=== PATIENT | female | born 1955 | race Two or more races ===

== ENCOUNTER 2018-06-08 07:52 | Emergency (ER) | payer OTHER ==
[2018-06-08] MEDS: OXYMETAZOLINE 0.05% 15 ML NAS SPRAY NASAL (08:28)
== END 2018-06-08 08:54 | disposition home or self-care (01) ==
LOC: FTE 07:52
DX: R04.0 Epistaxis (principal); I10 Essential (primary) hypertension; E11.9 Type 2 diabetes mellitus without complications; Z79.84 Long term (current) use of oral hypoglycemic drugs
CPT/HCPCS: 99283; Z7502

== ENCOUNTER 2018-06-12 16:07 | Emergency (ER) | payer OTHER ==
[2018-06-12] MEDS: OXYMETAZOLINE 0.05% 15 ML NAS SPRAY NASAL (16:28)
[2018-06-12] MEDS: ONDANSETRON (ODT) 4 MG TAB ODT (16:29)
[2018-06-12 16:40] LABS: ADD MAN DIFF? NO
[2018-06-12 16:47] LABS: BASOPHILS % 0.3 % (0.0-2.0); EOSINOPHILS # 0.1 10^3/ul (0.0-0.5); EOSINOPHILS % 0.9 % (0.0-7.0); HEMATOCRIT 35.4 % (37.0-47.0); HEMOGLOBIN 11.7 g/dl (12.0-16.0); LYMPHOCYTES # 2.4 10^3/ul (0.8-2.9); LYMPHOCYTES % 40.1 % (15.0-51.0); MEAN CORPUSCULAR HEMOGLOBIN 30.1 pg (29.0-33.0); MEAN CORPUSCULAR HGB CONC 33.1 g/dl (32.0-37.0); MEAN PLATELET VOLUME 9.9 fl (7.4-10.4); MONOCYTE # 0.4 10^3/ul (0.3-0.9); MONOCYTES % 7.1 % (0.0-11.0); NEUTROPHILS % 51.4 % (39.0-77.0); PLATELET COUNT 289 10^3/UL (140-415); RED BLOOD COUNT 3.89 10^6/ul (4.20-5.40); RED CELL DISTRIBUTION WIDTH 12.2 % (11.5-14.5)
[2018-06-12 16:47] LABS: WHITE BLOOD COUNT 5.9 10^3/ul (4.8-10.8)
[2018-06-12 17:03] LABS: INR 0.97; PARTIAL THROMBOPLASTIN TIME 27.5 Sec (23.0-35.0)
== END 2018-06-12 19:15 | disposition home or self-care (01) ==
LOC: E/R 16:07
DX: R04.0 Epistaxis (principal); I10 Essential (primary) hypertension; E11.9 Type 2 diabetes mellitus without complications; Z79.84 Long term (current) use of oral hypoglycemic drugs
CPT/HCPCS: 85025; 85610; 85730; 99283